=== PATIENT | male | born 1980 | race Hispanic/Latino ===

== ENCOUNTER 2020-05-18 09:15 | Outpatient (CLI) | payer OTHER ==
--- NOTE | 2020-05-18 10:08 | RAD ---
EXAM: Chest PA and lateral: HISTORY: Cough, known Covid positive COMPARISON: 05/05/2020 FINDINGS: Heart size:Within normal limits. Lungs:Improving patchy parenchymal changes in the right midlung zone. No confluent pneumonia, overt edema, pleural effusion, or other acute process. Improved aeration from prior study. IMPRESSION: Improving patchy parenchymal alveolar changes in the lateral aspect of the right midlung zone.
== END 2020-05-18 09:16 | disposition home or self-care (01) ==
LOC: BICRAD 09:15
PROVIDERS: ATTEND Family Medicine
DX: U07.1 COVID-19 (principal); J18.9 Pneumonia, unspecified organism
CPT/HCPCS: 71046

== ENCOUNTER 2020-06-23 10:33 | Outpatient (CLI) | payer OTHER ==
--- NOTE | 2020-06-23 11:02 | RAD ---
EXAM: Chest PA and lateral: HISTORY: COVID 19 pneumonia. COMPARISON: 05/18/2020 FINDINGS: Heart: Normal cardiac silhouette Aorta: Unremarkable Pulmonary vessels: Normal Costophrenic angles: Costophrenic angles are clear. Lungs: Improved aeration lung parenchyma. Minimal residual interstitial opacities do remain. No conso lidation. Pneumothorax: No pneumothorax Osseous structures: No osseous abnormalities IMPRESSION: Improved aeration lung parenchyma. Minimal residual interstitial opacities do remain. Continued surve illance as warranted.
== END 2020-06-23 10:34 | disposition home or self-care (01) ==
LOC: BICRAD 10:33
PROVIDERS: ATTEND Family Medicine
DX: U07.1 COVID-19 (principal); J18.9 Pneumonia, unspecified organism; R91.8 Other nonspecific abnormal finding of lung field
CPT/HCPCS: 71046

== ENCOUNTER 2021-02-22 13:33 | Outpatient (CLI) | payer OTHER | END 2021-02-22 13:34 | disposition home or self-care (01) | LOC: BICRAD 13:33 | PROVIDERS: ATTEND Family Medicine | DX: Z13.31 Encounter for screening for depression (principal) | CPT/HCPCS: 71046 ==

== ENCOUNTER 2021-03-06 09:57 | Outpatient (CLI) | payer SELFPAY | END 2021-03-06 09:58 | disposition home or self-care (01) | LOC: CTENTCT 09:57 | PROVIDERS: ATTEND Otolaryngology Plastic Surgery within the Head & Neck | DX: J32.9 Chronic sinusitis, unspecified (principal) | CPT/HCPCS: 70486 ==